=== PATIENT | female | born 2000 | race Caucasian/White ===

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

== ENCOUNTER 2020-09-02 13:38 | Emergency (ER) | payer MEDICAID ==
[~2020-09-02] VITALS: Ht 157.5 cm; Wt 56.7 kg
[2020-09-02 13:42] VITALS: BP 116/71
== END 2020-09-02 15:16 | disposition left against medical advice (07) ==
LOC: ER 13:38
DX: R55 Syncope and collapse (principal); Z53.21 Procedure and treatment not carried out due to patient leaving prior to being seen by health care provider
CPT/HCPCS: 93005